=== PATIENT | male | born 1960 | race Caucasian/White ===

== ENCOUNTER 2016-03-15 13:00 | Inpatient (IN) | payer OTHER ==
[~2016-03-15] VITALS: Ht 175.3 cm; Wt 89.6 kg
[2016-03-29] MEDS ORDERED: LISI20TA3 PO (12:58)
[2016-03-29] MEDS ORDERED: PARO40TA2 PO (12:58)
--- NOTE | 2016-04-12 09:32 | MH ---
cc: ANIYA WALKER DATE OF ADMISSION: 04/16/2016 ADMITTING DIAGNOSIS Left hip severe osteoarthritis. CHIEF COMPLAINT Left hip and groin pain. HISTORY OF PRESENT ILLNESS Mr. Bassett is a pleasant 55-year-old gentleman with a long history of worsening pain in his left hip. The patient has had over six months of conservative orthopedic care to include a cane in his right hand, use of fluoroscopic hip injections, multiple anti-inflammatory medications including acetaminophen, naproxen, ibuprofen as well as meloxicam, and a formalized exercise program. This has failed to relieve his symptoms and because of inability to do his activities of daily living prior he has decided to press on with elective left total hip arthroplasty. PAST MEDICAL HISTORY 1. Hypertension. 2. Hypercholesterolemia. PAST SURGICAL HISTORY 1. Hernia repair in the past. 2. Shoulder procedure in the past. ALLERGIES None. MEDICATIONS 1. Lisinopril. 2. Meloxicam. 3. Paroxetine. 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 FAMILY HISTORY Unremarkable. REVIEW OF SYSTEMS I reviewed the review of systems form in my chart. No symptoms of fever, chills, irregular heart beat, angina, chest pain, shortness of breath, nausea, vomiting, urinary changes, skin rash, bleeding tendency, joint swelling, depression, anxiety, weakness, numbness or varicose veins. PHYSICAL EXAMINATION He is 5 feet 9 inches, weighs 198 pounds. BMI is 29.2. GENERAL: He ambulates with an antalgic gait on the left. HEENT: Normocephalic, atraumatic. NECK: Supple without adenopathy or bruits. HEART: Regular rate and rhythm without murmur, rub or gallop. LUNGS: Clear bilaterally. ABDOMEN: Soft, nontender, without mass. EXTREMITIES: Examination does reveal restricted range of motion of his left hip, 90 degrees with hip flexion, 5 degrees of internal rotation, 10 degrees of external rotation, marked pain with internal and external rotation of the left hip. Dorsalis pedis and water trainer tibial pulses are palpable. Sensation is intact. No signs or symptoms of deep venous thrombosis. X-RAYS AP pelvis with AP and lateral x-ray of the left hip reveal severe osteoarthritis of the left hip, complete loss of articular cartilage with [id number] deformity, subchondral cysts, subchondral eburnation. Periarticular osteophytes are noted about the left hip. ASSESSMENT Left hip severe osteoarthritis. PLAN At this point I have had a very detailed, in-depth and lengthy discussion with the patient regarding the nature of his diagnosis and treatment options. He has failed full conservative care to include anti-inflammatory medication, injection therapy as well as using a cane and multiple anti-inflammatory medications. Because of persistent pain and difficulty to do his activities of daily living he has decided to press on with elective left total hip arthroplasty. This will be performed on April 16, 2015. The risks and benefits have been explained in detail. All questions answered. Full informed consent has been obtained. MD NICKI Kenny/ANNEMARIE /8:55 AM /9:22 AM
[2016-04-16] MEDS: LACTATED RINGER'S 1000 ML INJ 1,000 ML IV SCH ×2 (01:00→12:00)
[2016-04-16 06:00] VITALS: BP 135/78; PULSE 70; RESP 16; TEMP 98.6; O2SAT 99
[2016-04-16] MEDS: LACTATED RINGER'S 1000 ML IV SCH (06:30)
[2016-04-16] MEDS ORDERED: TRANEXAMIC ACID 1 GM PRIOR TO PROCEDURE IV SCH ×2 (06:30)
[2016-04-16] MEDS ORDERED: METOPROLOL TARTRATE 25 MG TAB PO PRN (06:30)
[2016-04-16] MEDS ORDERED: SODIUM CHLORID 0.9% 500 ML IV SCH (06:30)
[2016-04-16] MEDS ORDERED: TRANEXAMIC ACID 1 GM POST-OP IV SCH ×2 (06:30)
[2016-04-16] MEDS: POVIDONE IODINE 7.5% SCRUB 118 ML BOTTLE TOP SCH (06:30)
[2016-04-16] MEDS: CHLORHEXIDINE GLUCONATE 4% SOLN 120 ML BTL TOP SCH (06:30)
[2016-04-16] MEDS ORDERED: INSULIN HUMAN REGULAR 1,000 UNITS/10 ML VIAL SQ PRN (06:30)
[2016-04-16] MEDS ORDERED: VANCOMYCIN 1000 MG/NS 250 ML (for <70 kg) IV SCH ×2 (06:30)
[2016-04-16] MEDS ORDERED: ceFAZolin 2 GM PREMIX 50 ML IV SCH (06:30)
[2016-04-16] MEDS ORDERED: diphenhydrAMINE HCL 50 MG/ML VIAL IV PRN (07:00)
[2016-04-16] MEDS ORDERED: TRANEXAMIC ACID INJ 1,000 MG in SODIUM CHLORIDE 0.9% INJ 100 ML IV SCH (07:00)
[2016-04-16] MEDS ORDERED: Post-op Orders (for Pharmacy) MISC XX ONE (07:00)
[2016-04-16] MEDS ORDERED: ONDANSETRON HCL 4 MG/2 ML VIAL IVP PRN (07:00)
[2016-04-16] MEDS ORDERED: diphenhydrAMINE HCL 25 MG CAP PO PRN (07:00)
[2016-04-16] MEDS ORDERED: NALOXONE HCL 0.4 MG/ML AMP IV PRN (07:00)
[2016-04-16] MEDS ORDERED: SODIUM CHLORIDE 0.9% FLUSH 5 ML FLUSH IVF PRN (07:00)
[2016-04-16] MEDS ORDERED: BISACODYL 10 MG SUPP PR PRN (07:00)
[2016-04-16] MEDS ORDERED: MAGNESIUM HYDROXIDE SUSP 30 ML CUP PO PRN (07:00)
[2016-04-16] MEDS ORDERED: XARE10TA PO (07:02)
[2016-04-16] MEDS ORDERED: OXYC1TAB63 PO (07:02)
--- NOTE | 2016-04-16 07:03 | HHI.DCPOC ---
Discharge Care Plan Diagnosis: (1) Osteoarthritis of left hip Your Health Problems Are: Difficulty with ADL Goals to Promote Your Health * To prevent worsening of your condition and complications * To maintain your health at the optimal level Directions to Meet Your Goals Take your medications as prescribed Follow your dietary instruction Follow activity as directed Keep your appointments as scheduled Take your immunizations and boosters as scheduled If your symptoms worsen call your PCP, if no PCP go to Urgent Care Center or Emergency Room Smoking is Dangerous to Your Health. Avoid second hand smoke Call the 24-hour hour crisis hotline for domestic abuse at Raghu Ha MD Apr 16, 2016 07:03
--- NOTE | 2016-04-16 07:04 | HHI.FF ---
Face to Face Verification Diagnosis: (1) Osteoarthritis of left hip Physical Therapy Gait training Left LE Weight Bearing: WB as tolerated Left LE Range of Motion: Active ROM Nursing RN: 3 days/week x 2 weeks Dressing Changes: Do not change dressing I have seen patient Robert Bassett on 04/16/16. My clinical findings support the need for the requested home health care services because: Ltd mobility - disease progression Deconditioned w/ increased weakness I certify that my clinical findings support that this patient is homebound because: Post-op weakness Unsteady gait/balance Raghu Ha MD Apr 16, 2016 07:04
--- NOTE | 2016-04-16 07:05 | HHI.DS ---
Discharge Summary Admission Date Apr 16, 2016 at 05:43 Discharge Date: Apr 18, 2016 Admitting Diagnosis l hip oa Diagnosis: (1) Osteoarthritis of left hip Diagnosis: Principal Brief History This is a 55 year old male patient Hospital Course see note Pt Condition on Discharge: Good Discharge Disposition: Disch w/ Home Health Serv Discharge Instructions Diet Instructions: As Tolerated, No Restrictions Activities You Can Perform: Weight Bearing as Bobby Activities to Avoid: Strenuous Activity Raghu Ha MD Apr 16, 2016 07:04
[2016-04-16] MEDS ORDERED: GETGO ROLLING W1 MI1 (07:06)
[2016-04-16] MEDS ORDERED: MORPHINE SULFATE 30 MG/30 ML PCA IV SCH (07:30)
[2016-04-16] MEDS ORDERED: GENTAMICIN SULFATE 80 MG/2 ML VIAL ONE (08:01)
[2016-04-16] MEDS ORDERED: MIDAZOLAM HCL 2 MG/2 ML VIAL ONE (08:09)
[2016-04-16] MEDS: SODIUM CHLORIDE 0.9% FLUSH 5 ML FLUSH IVF SCH ×2 (09:00→21:00)
[2016-04-16] MEDS: PARoxetine HCL 20 MG TAB PO SCH (09:00)
[2016-04-16] MEDS ORDERED: NON-FORMULARY DRUG (Lisinopril-Hctz 1 TAB) PO SCH (09:00)
[2016-04-16] MEDS: HYDROCHLOROTHIAZIDE 25 MG TAB PO SCH (09:00)
[2016-04-16] MEDS: LISINOPRIL 20 MG TAB PO SCH (09:00)
--- NOTE | 2016-04-16 11:19 | HHI.PR ---
Immediate Post Op Note Procedure Date: Apr 16, 2016 Pre Op Diagnosis: (1) Osteoarthritis of left hip Post Op Diagnosis: (1) Osteoarthritis of left hip Surgeon: Raghu Ha Flue Tile Press Operator(s): paul burnett md Procedure: l ant chad Complications: none Estimated blood loss: 450cc Anesthesia: General Drains: None Patient to: PACU Patient Condition: Good Implant/Devices: SEE IMPLANT LOG (if applicable) (depuy 56/36; 12 ho; +1.5 ceramic) Raghu Ha MD Apr 16, 2016 11:19
[2016-04-16] MEDS ORDERED: DO NOT ADM ANY ANTICOAGULANT DRUGS XX PRN (11:40)
[2016-04-16] MEDS ORDERED: *MEPERIDINE 25 MG INJ VIAL PERIprocedural Use ONLY ONE (11:50)
[2016-04-16] MEDS ORDERED: fentaNYL CITRATE 250 MCG/5 ML AMP ONE ×2 (11:50→11:51)
[2016-04-16] MEDS ORDERED: MORPHINE SULFATE 4 MG/ML INJ ONE (11:51)
[2016-04-16] MEDS ORDERED: KETAMINE HCL 500 MG/5 ML VIAL ONE (11:51)
[2016-04-16] MEDS ORDERED: LACTATED RINGER'S 1000 ML INJ 2,000 ML IV ONE (12:00)
[2016-04-16] MEDS ORDERED: ePHEDrine/NS 50 MG/5 ML SYR IV ONE (12:00)
[2016-04-16] MEDS ORDERED: PHENYLEPH/NS 1000 MCG/10 ML SYR IV ONE (12:00)
[2016-04-16] MEDS ORDERED: ONDANSETRON HCL 4 MG/2 ML VIAL IV PUSH ONE (12:00)
[2016-04-16] MEDS ORDERED: PROPOFOL 1000 MG/100 ML BTL IV ONE (12:00)
[2016-04-16] MEDS ORDERED: KETOROLAC TROMETHAMINE 60 MG/2 ML (IM) VIAL IM ONE (12:00)
[2016-04-16] MEDS ORDERED: *morphine SULFATE 8 MG/ML PERIprocedure ONLY ONE (12:09)
--- NOTE | 2016-04-16 12:56 | RADRPT ---
EXAM DATE/TIME: 04/16/2016 08:48 [facility] COMPARISON: No previous studies available for comparison. INDICATIONS : Total left hip replacement. MEDICAL HISTORY : None. SURGICAL HISTORY : None. ENCOUNTER: Initial ACUITY: 1 day PAIN SCORE: Non-responsive. LOCATION: Left hip. FINDINGS: The patient is status post a total hip arthroplasty with a bipolar prosthesis. Prosthesis is well-sea meagan. Alignment is anatomic. A fracture is not appreciated. CONCLUSION: Anatomic alignment. Jg Fang MD FACR Board Certified Radiologist. This report was verified electronically.
--- NOTE | 2016-04-16 13:22 | MP ---
cc: CHERELLE FERNANDEZ M.D., [place] DATE OF SURGERY: 04/16/2016 PREOPERATIVE DIAGNOSIS: Left hip severe osteoarthritis. POSTOPERATIVE DIAGNOSIS: Left hip severe osteoarthritis. OPERATION: Left total hip arthroplasty anterior approach. SURGEON Dr. Ha LINK TRAINER Humberto Fernandez ANESTHESIA General tracheal. ESTIMATED BLOOD LOSS 450 cc COMPLICATIONS None known. COMPONENTS USED DePuy pinnacle cup 56 outer diameter 36 liner #12 high offset coryza stem with a +1.5 ceramic head. ESTIMATED BLOOD LOSS: 450 cc COMPLICATIONS None known. INDICATIONS Mr. Bassett has had over six month history of conservative care for severe left hip osteoarthritis. The patient has underwent use of a cane in his right hand. The patient underwent formalized exercise program, the patient has underwent multiple anti-inflammatory medications, the patient underwent fluoroscopic hip injection because of persistent pain, difficulty with activities of daily living. He has decided to press on with elective left total hip arthroplasty. OPERATION The patient was taken to the operating room on 04/16/2016 appropriately identified as Mr. Bassett the left lower extremity identified as the operative site. The patient underwent adequate general endotracheal anesthesia. He was given 2 grams of IV Ancef, 1 gram IV vancomycin, 1 gram tranexamic acid. He was then carefully transferred to [facility] and templating x-rays were then obtained. The left lower extremity was then prepped and draped in usual sterile fashion. A 13 cm anterior incision was made, 1 cm lateral inferior to the anterior superior iliac spine and sharp dissection was carried to the skin and subcutaneous tissue. The tensor fascia luis was identified, elevated after the fascia was split and retractor was then placed over the lateral aspect of femoral neck. Retractors were then placed about the rectus in the rectus was elevated off the capsule. A curved Barbara retractor was placed under this. A capsulotomy was then made and T-shaped capsulotomy was made. The capsule was then taken as the hip was externally rotated the 80 degrees anteriorly. The posterior capsule was then also tacked with a #2 FiberWire and it was split the level of the greater trochanter. When this was completed femoral neck cut was made under fluoroscopy and head sized down to 54, anterior posterior retractors were placed. Labral tissue was removed. Attention was then turned to reaming starting with a 48. We ended with a 55 followed by a 56. No hole, cup. When this was completed, 36 mm liner was placed. The hip was then externally rotated dropped to the floor and Adducted and proximal femur was identified. Box osteotome was used, canal finder was used. Sequential broaching was started with a eight and ended with a 12 high offset was chosen because of the medialization we performed. When this was completed, trialing was then done with a +1.5. After the final reduction templating x-rays matched anatomically. The hip was stable in external rotation being at 90 degrees and being able to drop to the floor. A #12 Cori stem was placed without difficulty +1.5 ceramic head was placed. The hip was relocated once again stable to 90 degrees of external rotation being with Drop to the floor. The wounds were thoroughly irrigated. Hemostasis was achieved. Capsule. Permanent x-rays in both the AP and lateral plane confirmed anatomic positioning of total hip arthroplasty, anatomic. No fractures were identified. The capsule was closed with #2 FiberWire, followed by closure of the tensor fascia luis with #1 Vicryl in interrupted fashion, followed by 2-0 Monocryl, followed by 3-0 Monocryl, followed by Steri-Strips. Sponge, needle counts were correct x2. The patient was taken recovery room in stable condition. MD NICKI eKnny/joel /11:34 AM /12:56 PM
[2016-04-16] MEDS: PCA - TOTAL MG MORPHINE DELIVERED PER SHIFT SCH (14:00)
[2016-04-16 16:00] VITALS: BP 109/71; PULSE 94; RESP 17; TEMP 96.6; O2SAT 95
[2016-04-16 20:00] VITALS: BP 102/61; PULSE 78; RESP 16; TEMP 96.9; O2SAT 97
[2016-04-17] VITALS: BP 102/63; PULSE 73; RESP 18; TEMP 98.2; O2SAT 97
[2016-04-17 04:03] VITALS: BP 100/61; PULSE 79; RESP 16; TEMP 98.2; O2SAT 98
[2016-04-17 05:28] LABS: HEMATOCRIT 30.5 % (39.0-51.0); REVIEW FLAG FINAL
[2016-04-17 08:20] VITALS: BP 110/56; PULSE 76; RESP 17; TEMP 99.3; O2SAT 93
[2016-04-17] MEDS: SODIUM CHLORIDE 0.9% FLUSH 5 ML FLUSH IVF SCH ×2 (09:00→21:29)
[2016-04-17] MEDS: HYDROCHLOROTHIAZIDE 25 MG TAB PO SCH (09:16)
[2016-04-17] MEDS: LISINOPRIL 20 MG TAB PO SCH (09:16)
[2016-04-17] MEDS: DOCUSATE SODIUM 100 MG CAP PO SCH ×2 (09:17→21:26)
[2016-04-17] MEDS: PARoxetine HCL 20 MG TAB PO SCH (09:17)
[2016-04-17] MEDS: oxyCODONE/ACETAMINOPHEN 5 MG/325 MG TAB PO PRN ×4 (09:18→23:28)
--- NOTE | 2016-04-17 10:59 | PD.ORT.PN ---
Subjective Post Op Day #: 1 Subjective Remarks pain under control Objective Vitals Vital Signs Date Time Temp Pulse Resp B/P Pulse Ox O2 Delivery O2 Flow Rate FiO2 04/17/16 08:20 99.3 76 17 110/56 93 04/17/16 07:25 Room Air 04/17/16 04:03 98.2 79 16 100/61 98 04/17/16 00:00 98.2 73 18 102/63 97 04/16/16 20:00 96.9 78 16 102/61 97 04/16/16 16:00 96.6 94 17 109/71 95 04/16/16 14:00 86 12 107/67 99 Nasal Cannula 2 04/16/16 14:00 12 04/16/16 12:38 12 04/16/16 12:30 98.6 95 12 113/67 98 Nasal Cannula 2 04/16/16 12:15 95 12 121/71 98 Nasal Cannula 2 04/16/16 12:00 103 12 124/66 97 Nasal Cannula 2 04/16/16 11:45 101 15 117/69 97 Nasal Cannula 2 04/16/16 11:40 98.5 104 14 145/76 98 Nasal Cannula 2 I/O 04/16/16 04/16/16 04/16/16 04/17/16 04/17/16 04/17/16 07:00 15:00 23:00 07:00 15:00 23:00 Intake Total 2390 ml 1173 ml 985 ml Output Total 900 ml 750 ml Balance 1490 ml 423 ml 985 ml Intake Oral 240 ml 600 ml IV Total 150 ml 573 ml 985 ml Other 2000 ml Output Urine Total 450 ml 750 ml Estimated Blood Loss 450 ml Result Diagram: 04/17/16 0443 Objective Remarks in bed, nad dressing c/d/i neg homans nvi Assessment & Plan Ortho Post Op Day #: 1 Problem List: (1) Osteoarthritis of left hip Assessment and Plan s/p L MARIBEL wbat maintain dressing xarelto d/c planning home with [facility] and pt f/up dr. wolfe 2 weeks Jonathan Tellez Apr 17, 2016 10:59
[2016-04-17] MEDS: RIVAROXABAN 10 MG TAB PO SCH (11:40)
[2016-04-17 12:00] VITALS: BP 101/57; PULSE 89; RESP 16; TEMP 98; O2SAT 98
[2016-04-17] MEDS: PCA - TOTAL MG MORPHINE DELIVERED PER SHIFT SCH (13:10)
[2016-04-17 16:00] VITALS: BP 105/58; PULSE 93; RESP 16; TEMP 98.9; O2SAT 96
[2016-04-17 20:00] VITALS: BP 102/54; PULSE 91; RESP 16; TEMP 99.8; O2SAT 98
[2016-04-18 00:20] VITALS: BP 112/58; PULSE 87; RESP 16; TEMP 99.1; O2SAT 96
[2016-04-18] MEDS: oxyCODONE/ACETAMINOPHEN 5 MG/325 MG TAB PO PRN ×4 (03:31→16:29)
[2016-04-18] MEDS: PCA - TOTAL MG MORPHINE DELIVERED PER SHIFT SCH ×2 (06:00→12:56)
[2016-04-18] MEDS: POVIDONE IODINE 7.5% SCRUB 118 ML BOTTLE TOP SCH (06:30)
[2016-04-18] MEDS: CHLORHEXIDINE GLUCONATE 4% SOLN 120 ML BTL TOP SCH (06:30)
[2016-04-18] MEDS: LACTATED RINGER'S 1000 ML IV SCH (06:30)
[2016-04-18 08:00] VITALS: BP 122/61; PULSE 73; RESP 16; TEMP 96.3; O2SAT 99
[2016-04-18] MEDS: PARoxetine HCL 20 MG TAB PO SCH (08:07)
[2016-04-18] MEDS: DOCUSATE SODIUM 100 MG CAP PO SCH (08:07)
[2016-04-18] MEDS: HYDROCHLOROTHIAZIDE 25 MG TAB PO SCH (08:07)
[2016-04-18] MEDS: LISINOPRIL 20 MG TAB PO SCH (08:07)
[2016-04-18] MEDS: LACTATED RINGER'S 1000 ML INJ 1,000 ML IV SCH (08:11)
[2016-04-18] MEDS: SODIUM CHLORIDE 0.9% FLUSH 5 ML FLUSH IVF SCH (08:13)
[2016-04-18] MEDS: RIVAROXABAN 10 MG TAB PO SCH (11:57)
[2016-04-18 12:25] VITALS: BP 107/57; PULSE 86; RESP 16; TEMP 97.2; O2SAT 99
--- NOTE | 2016-04-28 00:01 | MD ---
cc: ANIYA WALKER ADMISSION DATE: 04/16/2016 DISCHARGE DATE: 04/18/2016 ADMISSION DIAGNOSIS Left hip severe osteoarthritis. PROCEDURE 04/16/2016, left total hip arthroplasty anterior approach. CHIEF COMPLAINT, HISTORY OF PRESENT ILLNESS, PAST MEDICAL HISTORY, PAST SURGICAL HISTORY, MEDICATIONS, ALLERGIES, PHYSICAL EXAMINATION, REVIEW OF SYSTEMS: Please see history and physical dated April 16, 2016. ASSESSMENT: Left hip severe osteoarthritis. HOSPITAL COURSE The patient underwent the standard preoperative evaluation and met the appropriate requirements for anterior total hip arthroplasty with appropriate six months of conservative orthopedic care. The patient underwent uncomplicated anterior total hip arthroplasty on April 16, 2016. The patient progressed quite nicely, weightbearing as tolerated on the left and was felt to be a suitable candidate for discharge home on postop day #2, April 18, 2016. The patient was completed 24 hours of IV antibiotics on postoperative day #1. He was started on Xarelto on postoperative day #1 for DVT prophylaxis. He continued to progress quite nicely and was felt to be a suitable candidate for discharge on April 18, 2016. The patient will maintain weightbearing as tolerated on the left with standard anterior total hip precautions. The patient will be maintained with no dressing changes. The patient will be maintained on Percocet 5/325 one every six hours for pain control. The patient will be maintained on Xarelto 10 mg a day for 30 days for DVT prophylaxis. The patient was provided with home health care and home physical therapy. The patient will follow up in my office in 2 weeks for repeat wound check, suture removal and x-rays. Should any problems arise in the interim, the patient will give me a call. All questions answered to the patient's and family's satisfaction. MD NICKI Kenny/MARYCARMEN /5:37 AM /11:55 PM
== END 2016-04-18 16:35 | disposition home health service (06) | DRG 470 ==
LOC: HSDI 04-16 05:43 → N06A 04-16 15:57
PROVIDERS: ADMIT Orthopaedic Surgery; ATTEND Orthopaedic Surgery
PROC: 0SRB04A Replacement of Left Hip Joint with Ceramic on Polyethylene Synthetic Substitute, Uncemented, Open Approach (ICD-10-PCS; principal; 2016-04-16 08:14)
DX: M16.12 Unilateral primary osteoarthritis, left hip (principal); I10 Essential (primary) hypertension; E78.00 Pure hypercholesterolemia, unspecified
CPT/HCPCS: 73502; 76000; 85014; 85018; 86850; 86900; 86901; 94150; C1776; J0690; J1580; J1885; J2175; J2250; J2270; J2370; J2405; J3010; J3370; J7050; J7120

== ENCOUNTER 2016-10-17 12:49 | Emergency (ER) | payer OTHER ==
[~2016-10-17] VITALS: Ht 175.3 cm; Wt 95.8 kg
[~2016-10-17 12:49] MED LIST: GETGO ROLLING W1 MI1; LISI20TA3 PO; OXYC1TAB63 PO; PARO40TA2 PO; XARE10TA PO
[2016-10-17 12:51] VITALS: BP 155/81; PULSE 72; RESP 16; TEMP 97.6; O2SAT 96
--- NOTE | 2016-10-17 13:25 | PD ---
HPI Chief Complaint: Eye Problems/Injury Time Seen by Provider: 13:19 Travel History International Travel<30 days: No Contact w/Intl Traveler<30days: No Traveled to known affect area: No History of Present Illness HPI Patient presents with concerns of left eye visual changes over the last 2-3 days. States that the bottom one third of his vision has gotten darker. Denies pain. With occasional floaters. Vision in the top two thirds has remained intact. Denies any welding. Denies any high light exposure. Denies any pain. Denies any nausea vomiting diarrhea or fever. Wears sun glasses regularly. He has not seen an monument erector. States he does mildly need glasses for near and distant vision but he does not wear any. PFSH Past Medical History Cancer: No Cardiovascular Problems: Yes (HTN) High Cholesterol: Yes Diabetes: No Diminished Hearing: No Endocrine: No Gastrointestinal Disorders: Yes (INGUINAL HERNIA) Genitourinary: No Hepatitis: No Hiatal Hernia: No Hypertension: Yes Immune Disorder: No Musculoskeletal: Yes (OA) Neurologic: No Psychiatric: Yes (ANXIETY) Reproductive: No Respiratory: No Thyroid Disease: No Tetanus Vaccination: > 5 Years Influenza Vaccination: No Past Surgical History Abdominal Surgery: Yes (HERNIA REPAIR) AICD: No Cardiac Surgery: No Ear Surgery: No Endocrine Surgery: No Eye Surgery: No Genitourinary Surgery: No Gynecologic Surgery: No Joint Replacement: No Oral Surgery: No Pacemaker: No Thoracic Surgery: No Other Surgery: Yes Family History Family Myocardial Infarction: Yes Social History Alcohol Use: Yes (weekly) Tobacco Use: No Substance Use: No Allergies-Medications (Allergen,Severity, Reaction): Coded Allergies: No Known Allergies (Unverified , 10/17/16) Reported Meds & Prescriptions Reported Meds & Active Scripts Active Reported Paroxetine (Paroxetine HCl) 40 Mg Tab 40 Mg PO DAILY Lisinopril-Hctz 20-25 Mg Tab 1 Tab PO DAILY Physical Exam Narrative GENERAL: Well-nourished, well-developed patient. SKIN: Focused skin assessment warm/dry. HEAD: Normocephalic. EYES: No scleral icterus. No injection or drainage. Pupils equal round reactive light accommodation extraocular muscles intact no hyphema noted NECK: Supple, trachea midline. No JVD or lymphadenopathy. CARDIOVASCULAR: Regular rate and rhythm without murmurs, gallops, or rubs. RESPIRATORY: Breath sounds equal bilaterally. No accessory muscle use. GASTROINTESTINAL: Abdomen soft, non-tender, nondistended. MUSCULOSKELETAL: No cyanosis, or edema. BACK: Nontender without obvious deformity. No CVA tenderness. Data Data Last Documented VS Vital Signs Date Time Temp Pulse Resp B/P Pulse Ox O2 Delivery O2 Flow Rate FiO2 10/17/16 12:51 97.6 72 16 155/81 96 MDM Medical Decision Making Medical Screen Exam Complete: Yes Emergency Medical Condition: Yes Differential Diagnosis Retinal artery detachment, retinal artery occlusion, glaucoma Narrative Course Assessment and plan discussed with patient at bedside Physician Communication Physician Communication Spoke to Dr. Davis/ophthalmology who recommended an office visit first thing in the morning Diagnosis Primary Impression: Vision loss of left eye Patient Instructions: General Instructions Additional Instructions: Encourage rest and fluids. Encouraged follow-up with Dr. Davis/ophthalmology at 8 AM. Please provide number and address. Return to emergency room with any new onset of symptoms Med/Other Pt SpecificInfo: No Meds Exist/No RX given Disposition: 01 DISCHARGE HOME Condition: Good Kush Paredes MD Oct 17, 2016 13:25
[2016-10-18] MEDS ORDERED: LOVA10TA PO (08:29)
== END 2016-10-17 13:54 | disposition home or self-care (01) ==
LOC: PHED 12:49
DX: H54.7 Unspecified visual loss (principal); I10 Essential (primary) hypertension; E78.00 Pure hypercholesterolemia, unspecified; Z86.79 Personal history of other diseases of the circulatory system; Z87.19 Personal history of other diseases of the digestive system; Z87.39 Personal history of other diseases of the musculoskeletal system and connective tissue; Z86.59 Personal history of other mental and behavioral disorders
CPT/HCPCS: 99281

== ENCOUNTER 2016-10-17 14:57 | Emergency (ER) | payer OTHER ==
[~2016-10-17] VITALS: Ht 175.3 cm; Wt 95.0 kg
[2016-10-17 14:59] VITALS: BP 152/75; PULSE 70; RESP 16; TEMP 98; O2SAT 96
--- NOTE | 2016-10-17 15:16 | PD ---
HPI Chief Complaint: Eye Problems/Injury Time Seen by Provider: 15:13 Travel History International Travel<30 days: No Contact w/Intl Traveler<30days: No Traveled to known affect area: No History of Present Illness HPI Patient represents to emergency room with concerns of increasing loss of vision. States initially it was the lower one third and now it is up over half. Continues to decline pain. Admits to floaters. Arrangements were made for the patient to see Dr. Davis in the morning. PFSH Past Medical History Cancer: No Cardiovascular Problems: Yes (HTN) High Cholesterol: Yes Diabetes: No Diminished Hearing: No Endocrine: No Gastrointestinal Disorders: Yes (INGUINAL HERNIA) Genitourinary: No Hepatitis: No Hiatal Hernia: No Hypertension: Yes Immune Disorder: No Musculoskeletal: Yes (OA) Neurologic: No Psychiatric: Yes (ANXIETY) Reproductive: No Respiratory: No Thyroid Disease: No Past Surgical History Abdominal Surgery: Yes (HERNIA REPAIR) AICD: No Cardiac Surgery: No Ear Surgery: No Endocrine Surgery: No Eye Surgery: No Genitourinary Surgery: No Gynecologic Surgery: No Joint Replacement: No Oral Surgery: No Pacemaker: No Thoracic Surgery: No Other Surgery: Yes Social History Alcohol Use: Yes (weekly) Tobacco Use: No Substance Use: No Allergies-Medications (Allergen,Severity, Reaction): Coded Allergies: No Known Allergies (Unverified , 10/17/16) Reported Meds & Prescriptions Reported Meds & Active Scripts Active Reported Paroxetine (Paroxetine HCl) 40 Mg Tab 40 Mg PO DAILY Lisinopril-Hctz 20-25 Mg Tab 1 Tab PO DAILY Review of Systems General / Constitutional: No: Fever Eyes: Positive: Visual changes HENT: No: Headaches Cardiovascular: No: Chest Pain or Discomfort Respiratory: No: Shortness of Breath Gastrointestinal: No: Abdominal Pain Genitourinary: No: Dysuria Musculoskeletal: No: Pain Skin: No Rash Neurologic: No: Weakness Psychiatric: No: Depression Endocrine: No: Polydipsia Hematologic/Lymphatic: No: Easy Bruising Physical Exam Narrative GENERAL: Well-nourished, well-developed patient. SKIN: Focused skin assessment warm/dry. HEAD: Normocephalic. EYES: No scleral icterus. No injection or drainage. Pupils equal round reactive light accommodation, extraocular muscles intact NECK: Supple, trachea midline. No JVD or lymphadenopathy. CARDIOVASCULAR: Regular rate and rhythm without murmurs, gallops, or rubs. RESPIRATORY: Breath sounds equal bilaterally. No accessory muscle use. GASTROINTESTINAL: Abdomen soft, non-tender, nondistended. MUSCULOSKELETAL: No cyanosis, or edema. BACK: Nontender without obvious deformity. No CVA tenderness. Data Data Last Documented VS Vital Signs Date Time Temp Pulse Resp B/P Pulse Ox O2 Delivery O2 Flow Rate FiO2 10/17/16 14:59 98.0 70 16 152/75 96 MDM Medical Decision Making Medical Screen Exam Complete: Yes Emergency Medical Condition: Yes Differential Diagnosis Retinal detachment, retinal artery occlusion, floaters Narrative Course Assessment and plan discussed with patient at bedside. Physician Communication Physician Communication Spoke with Dr. Davis again who provided reassurance Diagnosis Primary Impression: Vision loss of left eye Additional Instructions: Conveyed discussion with Dr. Davis who recommended water after midnight in case he needs to progress to surgery. Encouraged to call the office at 8 AM for patient follow-up. Encouraged rest. Med/Other Pt SpecificInfo: No Meds Exist/No RX given Disposition: 01 DISCHARGE HOME Condition: Good Kush Paredes MD Oct 17, 2016 15:16
[2016-10-18] MEDS ORDERED: LOVA10TA PO (08:29)
== END 2016-10-17 16:11 | disposition home or self-care (01) ==
LOC: PHED 14:57
DX: H54.62 Unqualified visual loss, left eye, normal vision right eye (principal); I10 Essential (primary) hypertension; E78.00 Pure hypercholesterolemia, unspecified; Z86.79 Personal history of other diseases of the circulatory system; Z87.19 Personal history of other diseases of the digestive system; Z87.39 Personal history of other diseases of the musculoskeletal system and connective tissue; Z86.59 Personal history of other mental and behavioral disorders
CPT/HCPCS: 99281

== ENCOUNTER 2017-01-19 11:09 | Emergency (ER) | payer OTHER ==
[~2017-01-19] VITALS: Ht 175.3 cm; Wt 90.0 kg
[~2017-01-19 11:09] MED LIST changes: -GETGO ROLLING W1 MI1; +LOVA10TA PO; -OXYC1TAB63 PO; -XARE10TA PO
[2017-01-19 11:11] VITALS: BP 142/69; PULSE 90; RESP 16; TEMP 97.9; O2SAT 98
--- NOTE | 2017-01-19 11:32 | PD ---
HPI Chief Complaint: Exposure to Blood/Body Fluids Time Seen by Provider: 11:27 Travel History International Travel<30 days: No Contact w/Intl Traveler<30days: No Traveled to known affect area: No History of Present Illness HPI 56-year-old male with PMH of HTN, HLD, depression presents to the ED for evaluation of sore throat and nonproductive cough approximately 40 minutes after accidentally mixing "a few quarts of chlorine with a gallon of acid." The patient states that he was in the pool house of his place of employment and accidentally mixed the 2 chemicals. He states that he inhaled a few breaths of this and now complains of sore throat, nonproductive cough. No alleviating or exacerbating factors reported. He denies headache, dizziness, vision changes, closed throat sensation, difficulties breathing, wheezing, hemoptysis, hematemesis, nausea or vomiting. He drove himself to the hospital. He is a nonsmoker. PFSH Past Medical History Cancer: No Cardiovascular Problems: Yes (HTN) High Cholesterol: Yes Diabetes: No Diminished Hearing: No Endocrine: No Gastrointestinal Disorders: Yes (INGUINAL HERNIA) Genitourinary: No Hepatitis: No Hiatal Hernia: No Hypertension: Yes Immune Disorder: No Musculoskeletal: Yes (OA) Neurologic: No Psychiatric: Yes (ANXIETY) Reproductive: No Respiratory: No Thyroid Disease: No Tetanus Vaccination: > 5 Years Past Surgical History Abdominal Surgery: Yes (HERNIA REPAIR) AICD: No Cardiac Surgery: No Ear Surgery: No Endocrine Surgery: No Eye Surgery: No Genitourinary Surgery: No Gynecologic Surgery: No Joint Replacement: No Oral Surgery: No Pacemaker: No Thoracic Surgery: No Other Surgery: Yes Family History Family Myocardial Infarction: Yes Social History Alcohol Use: Yes (weekly) Tobacco Use: No Substance Use: No Allergies-Medications (Allergen,Severity, Reaction): Coded Allergies: No Known Allergies (Unverified , 01/19/17) Reported Meds & Prescriptions Reported Meds & Active Scripts Active Reported Lovastatin 10 Mg Tab 10 Mg PO DAILY Paroxetine (Paroxetine HCl) 40 Mg Tab 40 Mg PO DAILY Lisinopril-Hctz 20-25 Mg Tab 1 Tab PO DAILY Review of Systems Except as stated in HPI: all other systems reviewed are Neg Physical Exam Narrative GENERAL: Well-nourished, well-developed white male in NAD. SKIN: Warm and dry. HEAD: Normocephalic. Atraumatic. EYES: No scleral icterus. No injection or drainage. PERRLA. EOMI. ENT: Pearly salguero tympanic membranes bilaterally. Nasal mucosa is moist. Oropharynx without erythema, edema or exudate. Uvula midline. Airway patent. No visible abrasion or lesion of the oropharynx. DENTAL: No loose or chipped teeth. No malocclusion. No visible abrasion or lesion of the buccal surfaces. NECK: Supple, trachea midline. No JVD or lymphadenopathy. CARDIOVASCULAR: Regular rate and rhythm without murmurs, gallops, or rubs. No carotid bruits. 2+ DP and radial pulses bilaterally. RESPIRATORY: Breath sounds clear and equal bilaterally. No accessory muscle use. GASTROINTESTINAL: Abdomen soft, non-tender, nondistended. + Bowel sounds MUSCULOSKELETAL: No cyanosis, or edema. Patient is noted to walk with a normal gait. BACK: Nontender without obvious deformity. No CVA tenderness. Data Data Last Documented VS Vital Signs Date Time Temp Pulse Resp B/P (MAP) Pulse Ox O2 Delivery O2 Flow Rate FiO2 01/19/17 11:44 100 Room Air 01/19/17 11:11 97.9 90 16 Orders Orders Ecg Monitoring (01/19/17 11:36) Oximetry (01/19/17 11:36) Chest, Single Ap (01/19/17 11:36) Albuterol-Ipratropium Neb (Duoneb Neb) (01/19/17 11:45) Ed Discharge Order (01/19/17 13:53) MDM Medical Decision Making Medical Screen Exam Complete: Yes Emergency Medical Condition: Yes Differential Diagnosis chemical inhalation versus irritant induced asthma versus reactive airway syndrome versus other Narrative Course 56-year-old male with PMH of HTN, HLD, depression presents to the ED for evaluation of sore throat and nonproductive cough approximately 40 minutes after accidentally mixing "a few quarts of chlorine with a gallon of acid." The patient states that he was in the pool house and accidentally mixed the 2 chemicals. He states that he inhaled a few breaths of this fume. He denies headache, dizziness, vision changes, closed throat sensation, difficulties breathing, wheezing, hemoptysis, hematemesis, nausea or vomiting. Vitals reviewed. O2 saturations 99-100% on room air. ENT exam reveals no visible oropharyngeal injury. Breath sounds clear and equal bilaterally. Patient was administered duo nebs 1. Chest x-ray is normal per radiology read. Patient was observed in the ED for approximately 2 hours with no worsening of symptoms. Recheck reveals no oropharyngeal injury or changes in breath sounds. I attempted to call Dr. Talbot,the consumer safety officer ENT, for recommendations. No return call in 1 hour. He is referred to Dr. Talbot, ENT for further evaluation of the oropharynx and trachea. He is agreeable with this care plan. He is stable and discharged home. Diagnosis Primary Impression: Inhalation of gaseous substance Qualified Codes: T59.91XA - Toxic effect of unspecified gases, fumes and vapors, accidental (unintentional), initial encounter Additional Impression: Pharyngitis Qualified Codes: J02.9 - Acute pharyngitis, unspecified Referrals: Rashad Talbot MD Additional Instructions: Rest, hydrate. Return to normal, gentle activities as tolerated. Use caution while handling chemicals. Follow-up with the ENT as discussed. Return to the ED for any urgent or emergent medical condition. Disposition: 01 DISCHARGE HOME Condition: Stable Cande Forrester Jan 19, 2017 11:32
[2017-01-19 11:44] VITALS: O2SAT 100
[2017-01-19] MEDS ORDERED: RESP: ALBUTEROL 2.5 MG/IPRATROPIUM 0.5 MG NEB (SCH) INH ONE (11:45)
--- NOTE | 2017-01-19 11:52 | RADRPT ---
EXAM DATE/TIME: 01/19/2017 11:52 [facility] COMPARISON: No previous studies available for comparison. INDICATIONS : Shortness of breath. MEDICAL HISTORY : Hypertension. SURGICAL HISTORY : Inguinal hernia repair. ENCOUNTER: Initial ACUITY: 1 day PAIN SCORE: 0/10 LOCATION: Bilateral chest FINDINGS: A single view of the chest demonstrates the lungs to be symmetrically aerated without evidence of mas s, infiltrate or effusion. The cardiomediastinal contours are unremarkable. Osseous structures are intact. CONCLUSION: Normal examination. Uday Burdick Jr., MD on January 19, 2017 at 11:51 Board Certified Radiologist. This report was verified electronically.
== END 2017-01-19 14:16 | disposition home or self-care (01) ==
LOC: NEPC 11:09
DX: T59.91XA Toxic effect of unspecified gases, fumes and vapors, accidental (unintentional), initial encounter (principal); J02.9 Acute pharyngitis, unspecified; X58.XXXA Exposure to other specified factors, initial encounter; I10 Essential (primary) hypertension
CPT/HCPCS: 71010; 94664; 99283

== ENCOUNTER 2017-06-02 06:26 | Observation (INO) | payer OTHER ==
[~2017-06-02] VITALS: Ht 176.5 cm; Wt 94.5 kg
[2017-06-02] MEDS ORDERED: CHLORHEXIDINE GLUCONATE 4% SOLN 120 ML BTL TOPICAL SCH (07:00)
[2017-06-02] MEDS ORDERED: VANCOMYCIN 1000 MG/NS 250 ML (for <70 kg) IV SCH ×2 (07:00)
[2017-06-02] MEDS ORDERED: METOPROLOL TARTRATE 25 MG TAB PO PRN (07:00)
[2017-06-02] MEDS ORDERED: ceFAZolin 2 GM PREMIX 50 ML IV SCH (07:00)
[2017-06-02] MEDS ORDERED: CHLORHEXIDINE GLUCONATE 2 % 1 PACK (2 CLOTHS) TOPICAL PRN (07:00)
[2017-06-02] MEDS ORDERED: LACTATED RINGER'S 1000 ML IV PRN (07:00)
[2017-06-02] MEDS ORDERED: POVIDONE IODINE 5% (ANTISEPSIS KIT) 4 APPLICATIONS EACH NARE PRN (07:00)
[2017-06-02] MEDS ORDERED: SODIUM CHLORID 0.9% 500 ML IV PRN (07:00)
[2017-06-02 08:09] VITALS: PULSE 69
[2017-06-02] MEDS ORDERED: SODIUM CHLORIDE 0.9% 20 ML VIAL ONE (09:35)
[2017-06-02] MEDS ORDERED: BUPIVACAINE LIPOSOME PF 1.3% 20 ML VIAL ONE (09:35)
[2017-06-02] MEDS ORDERED: ROPIVACAINE PERI-ARTICULAR INJECTION. P-ARTICULR SCH ×5 (10:00)
[2017-06-02] MEDS ORDERED: ROPIVACAINE 0.5% PF INJ 24.63 ML, KETOROLAC INJ 30 MG, EPINEPHrine (1:1000) INJ 0.5 MG,... P-ARTICULR SCH ×5 (10:30)
[2017-06-02] MEDS ORDERED: TRANEXAMIC ACID IV SCH (11:00)
[2017-06-02] MEDS ORDERED: EXPAREL PERI-ARTICULAR INJECTION (TOTAL VOL. 60 ML) P-ARTICULR SCH ×2 (11:00)
[2017-06-02] MEDS ORDERED: SODIUM CHLORIDE 0.9% IV SCH (11:00)
[2017-06-02] MEDS ORDERED: ePHEDrine/NS 25 MG/5 ML SYRINGE IV ONE (12:00)
[2017-06-02] MEDS ORDERED: ROCURONIUM INJ 50 MG/5 ML SYRINGE IV PUSH ONE (12:00)
[2017-06-02] MEDS ORDERED: ONDANSETRON HCL 4 MG/2 ML VIAL IV ONE (12:00)
[2017-06-02] MEDS ORDERED: PHENYLEPH/NS 1000 MCG/10 ML SYR IV ONE (12:00)
[2017-06-02] MEDS ORDERED: DEXAMETHASONE SOD PHOS 4 MG/ML VIAL IV ONE (12:00)
[2017-06-02] MEDS ORDERED: PROPOFOL 200 MG/20 ML AMP IV ONE (12:00)
[2017-06-02] MEDS ORDERED: LIDOCAINE HCL 1% PF 5 ML SYRINGE OTHER ONE (12:00)
[2017-06-02] MEDS ORDERED: DO NOT ADM ANY ANTICOAGULANT DRUGS PRN (12:22)
[2017-06-02] MEDS ORDERED: *MEPERIDINE 25 MG INJ VIAL PERIprocedural Use ONLY ONE (12:23)
[2017-06-02] MEDS ORDERED: MORPHINE SULFATE 4 MG/ML INJ ONE (12:27)
[2017-06-02] MEDS ORDERED: MIDAZOLAM HCL 2 MG/2 ML VIAL ONE (12:27)
[2017-06-02] MEDS ORDERED: ONDANSETRON HCL 4 MG/2 ML VIAL IV PUSH PRN (12:45)
[2017-06-02] MEDS ORDERED: oxyCODONE/ACETAMINOPHEN 5 MG/325 MG TAB PO PRN ×2 (12:45)
[2017-06-02] MEDS ORDERED: *morphine SULFATE 4 MG/ML PERIprocedure ONLY ONE (13:36)
--- NOTE | 2017-06-02 14:26 | RADRPT ---
EXAM DATE/TIME: 06/02/2017 12:52 [facility] COMPARISON: CHEST SINGLE AP, January 19, 2017, 11:52. INDICATIONS : Post knee hardware plaecment MEDICAL HISTORY : Hypertension. SURGICAL HISTORY : Inguinal hernia repair. ENCOUNTER: Initial ACUITY: 1 day PAIN SCORE: 0/10 LOCATION: Left Knee FINDINGS: The examination demonstrates a left hemiarthroplasty. The orthopedic hardware is in excellent positio n. There are skin naty in place. There is effusion within the suprapatellar bursa. CONCLUSION: 1. Hemiarthroplasty of the medial compartment. Orthopedic hardware appears well aligned. Jhonathan Fang MD on June 02, 2017 at 14:24 Board Certified Radiologist. This report was verified electronically.
[2017-06-02 16:00] VITALS: BP 115/61; PULSE 97; RESP 16; TEMP 97.7; O2SAT 95
[2017-06-02] MEDS ORDERED: ASPIRIN EC 81 MG TABEC PO SCH (21:00)
[2017-06-03] MEDS ORDERED: NON-FORMULARY DRUG (Lisinopril-Hctz 1 TAB) PO SCH (09:00)
[2017-06-03] MEDS ORDERED: PARoxetine HCL 20 MG TAB PO SCH (09:00)
[2017-06-03] MEDS ORDERED: LISINOPRIL 20 MG TAB PO SCH (09:00)
[2017-06-03] MEDS ORDERED: PRAVASTATIN SOD 10 MG TAB PO SCH (09:00)
[2017-06-03] MEDS ORDERED: HYDROCHLOROTHIAZIDE 25 MG TAB PO SCH (09:00)
--- NOTE | 2017-06-04 21:35 | MP ---
cc: CHERELLE FERNANDEZ DATE OF SURGERY 06/02/17 PREOPERATIVE DIAGNOSIS Left knee medial compartment severe osteoarthritis. POSTOPERATIVE DIAGNOSIS Left knee medial compartment severe osteoarthritis. PROCEDURE Left knee unicompartmental medial compartment arthroplasty. ANESTHESIA General and regional SURGEON Harinder Fernandez MD BIAS CUTTING MACHINE OPERATOR VERTICAL SURGEON KARLA Hooper ESTIMATED BLOOD LOSS 100 mL DRAIN None. SPECIMEN Bony fragments discarded. COMPLICATIONS None known. INDICATION Robert Bryant is a 56-year-old male with severe varus medial compartment osteoarthritis of the knee. He has failed conservative management and indicated for unicompartmental arthroplasty. Risks, benefits, alternatives to treatment were thoroughly discussed in detail. Informed consent was obtained. PROCEDURE IN DETAIL The patient was brought into the operating room and was placed under general anesthetic. He had been given regional block in the preop holding area. The left lower extremity was prepped and draped in usual sterile fashion. It should be noted that the server service assistant is an advanced registered nurse practitioner and his skill set was medically necessary for the performance of the operation. With the left lower extremity prepped and draped, Time-out was completed. IV antibiotics had been given. a slightly medial to midline incision was made, taken through the subcutaneous tissue. Hemostasis was obtained with the use of electrocautery. A medial parapatellar incision, exposing the medial compartment of the knees and subperiosteal dissection on the medial plateau side was performed. A severe [id number] osteoarthritis was noted. We used our tibial cutting guide and made our vertical cut and then a horizontal cut and then sized, size five fit nicely. We then made a distal cut with a 2 mm sizing block to accommodate the bone loss. We then proceeded with sizing the tibia and this is a size five. We fixated our guide and proceeded with our cuts. At this point, we resected the medial meniscus and we proceeded to trial our components which fit nicely. Excellent range of motion and stability. The size nine mm was most appropriate for full extension and full flexion and ligamentous balance. These were the final components selected and brought onto the field except for the polyethylene. We proceeded with our finishing cuts on the tibia. We used pulse lavage antibiotic irrigation. We had very good hemostasis. We injected long-acting Marcaine about the knee and then proceeded to use pulse lavage antibiotic irrigation and we cemented our components. Residual cement was removed. We trialed once again and ultimately the size nine was appropriate. The tourniquet was let down at 10 minutes and excellent hemostasis was obtained. Additional a long-acting injection was performed. Then at this point we had very good hemostasis. We proceeded to closed in layers of absorbable sutures, subcuticular on the skin. The patient had naty on the skin. Sterile dressing applied. The patient was awaken and returned recovery room in stable condition. MD ZAYDA Whitaker/ /12:39 PM /9:23 PM
== END 2017-06-02 16:40 | disposition home or self-care (01) ==
LOC: HSDC 06:26 → HSDI 12:37
PROVIDERS: ADMIT Orthopaedic Surgery Sports Medicine; ATTEND Orthopaedic Surgery Sports Medicine
DX: M17.12 Unilateral primary osteoarthritis, left knee (principal)
CPT/HCPCS: 01400; 01991; 27446; 64447; 73560; 86850; 86900; 86901; 97162; C1776; C9290; G8987; G8988; J0690; J0735; J1100; J1885; J2175; J2250; J2270; J2370; J2405; J2795; J3010; J3370; J7050; J7120